=== PATIENT | female | born 1950 | race Caucasian/White ===

== ENCOUNTER 2022-05-11 13:03 | Outpatient (CLI) | payer MEDICARE, OTHER, SELFPAY ==
[2022-05-11 21:41] LABS: Albumin* 4.6 g/dL (3.3-5.0); Chloride* 107 mmol/L (96-114); Potassium* 4.1 mmol/L (3.6-5.1); Sodium* 141 mmol/L (135-149)
[2022-05-11 21:44] LABS: Alanine Aminotransferase* 25 U/L (4-35); Alkaline Phosphatase* 108 U/L (40-150); Aspartate Amino Transferase* 31 U/L (12-35); Bilirubin Total* 1.2 mg/dL (0.1-1.5); Blood Urea Nitrogen* 13 mg/dL (7-30); Calcium* 8.5 mg/dL (8.4-10.6); Carbon Dioxide* 24 mmol/L (20-32); Cholesterol* 246 mg/dL (90-199); Creatinine* 0.7 mg/dL (0.5-1.5); Estimated Glomerular Filt Rate 92 ml/min; Glucose* 91 mg/dL (60-115); Total Protein* 7.5 g/dL (6.0-8.3); Triglycerides* 232 mg/dL (40-149)
[2022-05-11 21:45] LABS: HDL Cholesterol* 36 mg/dL (>=50); LDL Cholesterol Calculated 164 mg/dL (<100)
[2022-05-11 22:06] LABS: TSH With Reflex to FT4* 0.715 uIU/mL (0.270-4.200)
== END 2022-05-11 13:04 | disposition home or self-care (01) ==
PROVIDERS: PCP Emergency Medicine; Visit Provider Emergency Medicine
DX: E03.9 Hypothyroidism, unspecified (principal); I10 Essential (primary) hypertension; E78.5 Hyperlipidemia, unspecified
CPT/HCPCS: 80053; 80061; 84443

== ENCOUNTER 2022-08-12 10:23 | Outpatient (CLI) | payer OTHER, SELFPAY ==
--- NOTE | 2022-08-12 10:45 | CRLHL7_ITS ---
For Patients: As a result of the Century Cures Act, medical imaging exams and procedure reports are released immediately into your electronic medical record. You may view this report before your referring provider. If you have questions, please contact your health care provider. BILATERAL SCREENING MAMMOGRAM WITH COMPUTER-AIDED DETECTION AND TOMOSYNTHESIS TECHNIQUE: CC and MLO views were obtained. These mammographic images have been obtained using full-field digital technique. These mammographic images were interpreted with the benefit of computer-aided detection. Breast Tomosynthesis was used in this interpretation. COMPARISON FILM: No priors available. FINDINGS: There are scattered areas of fibroglandular density IMPRESSION: There is no radiographic evidence for malignancy. ASSESSMENT: BI-RADS Category 1: Negative RECOMMENDATION: Routine screening mammogram in 1 year. A lay language report of this examination will be provided to the patient. Jorge Grissom M.D. Diagnostic Radiologist [email or web address] VISHAL/Dictated by: Jorge Grissom MD @ 08/24/2022 11:31:00 AM (Electronically Signed)
== END 2022-08-12 10:24 | disposition home or self-care (01) ==
LOC: MAMMO 10:26
PROVIDERS: PCP Emergency Medicine; Visit Provider Emergency Medicine
DX: Z12.31 Encounter for screening mammogram for malignant neoplasm of breast (principal)
CPT/HCPCS: 77063; 77067

== ENCOUNTER 2023-01-05 12:53 | Outpatient (CLI) | payer OTHER, SELFPAY ==
--- NOTE | 2023-01-05 13:00 | CRLHL7_ITS ---
For Patients: As a result of the Century Cures Act, medical imaging exams and procedure reports are released immediately into your electronic medical record. You may view this report before your referring provider. If you have questions, please contact your health care provider. DXA BONE MINERAL DENSITY STUDY Reason for exam: Abnormal bone density 8 years ago. Disorder of bone density and structure. Current height (in): 62. Weight (lb): 190. Menopause age: 53. Ethnicity: White. 1. Have you had a previous hip or vertebral fracture? No. 2. Have you had any fractures during your adult life which did not result from significant trauma (e.g., auto accident)? No. 3. Did either of your parents have a hip fracture? No. 4. Do you smoke? No. 5. Have you ever taken Glucocorticoids? No. 6. Do you have rheumatoid arthritis? No. 7. Do you have secondary osteoporosis? No. 8. Do you drink 3 or more alcoholic drinks per day? No. 9. Are you being treated for osteoporosis? No. 10. Have you ever taken any of the following medications: Actonel, Evista, Fosamax, Miacalcin, Reclast, Boniva, Forteo, HRT (i.e., estrogen/hormone therapy), Protelos, Prolia, Vitamin D, Calcium, other ??? please specify. ANSWER: Yes, vitamin D. 11. Do you have any of the following medical conditions: Anorexia or bulimia, asthma or emphysema, end stage renal disease, hyperparathyroidism, any seizure disorders, cancer, inflammatory bowel diseases, hysterectomy, other ??? please specify. ANSWER: Yes, cancer, hysterectomy. 12. What was your maximum height (inches)? 63. 13. Do you perform weight bearing exercise regularly? No. 14. Do you regularly consume dairy products? Yes. 15. Do you drink caffeinated beverages? Yes. If female: 16. At what age did your period start? 11. 17. Are you premenopausal? No. 18. How many full-term pregnancies have you had? 2. 19. Have you ever missed your period for more than 6 months in a row (not including or menopause)? No. TECHNIQUE: Bone mineral density study was performed using the [employer]. FINDINGS: The results of the study expressed as bone mineral density (BMD) are as follows: Lumbar spine L1 to L4: BMD: 0.749 g/cm2. T-score: -2.7. Z-score: -0.5 Neck Left: BMD: 0.663 g/cm2. T-score: -1.7. Z-score: 0.2 Right: BMD: 0.732 g/cm2. T-score: -1.1. Z-score: 0.9 Total Left: BMD: 0.858 g/cm2. T-score: -0.7. Z-score: 0.9 Right: BMD: 0.916 g/cm2. T-score: -0.2. Z-score: 1.4 IMPRESSION: Osteoporosis. VENTURA RICE M.D. Diagnostic/Nuclear Medicine Radiologist [email or web address] JMN:jazmine lucero/Dictated by: Ventura Rice MD @ 01/05/2023 3:39:00 PM (Electronically Signed)
== END 2023-01-05 12:54 | disposition home or self-care (01) ==
LOC: RAD 12:55
PROVIDERS: PCP Emergency Medicine; Visit Provider Emergency Medicine
DX: R01.1 Cardiac murmur, unspecified (principal); I51.7 Cardiomegaly; M85.9 Disorder of bone density and structure, unspecified; M81.0 Age-related osteoporosis without current pathological fracture
CPT/HCPCS: 77080; 93306